=== PATIENT | male | born 1990 | race Caucasian/White ===

== ENCOUNTER 2020-08-03 02:07 | Emergency (ER) | payer OTHER ==
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
[2020-08-03 08:07] VITALS: RESP 18
[2020-08-03 12:10] VITALS: BP 123/89; PULSE 77; TEMP 97.7
== END 2020-08-03 12:09 | disposition home or self-care (01) ==
LOC: EC 02:07
DX: R45.851 Suicidal ideations (principal); F10.10 Alcohol abuse, uncomplicated; Y90.9 Presence of alcohol in blood, level not specified; F17.200 Nicotine dependence, unspecified, uncomplicated
CPT/HCPCS: 82075; 99285